=== PATIENT | male | born 1980 | race Caucasian/White ===

== ENCOUNTER 2018-02-07 07:42 | Emergency (ER) | payer MEDICARE ==
[~2018-02-07] VITALS: Ht 193 cm; Wt 99.8 kg
[2018-02-07 08:23] VITALS: BP 124/82
== END 2018-02-07 08:48 | disposition home or self-care (01) ==
LOC: ER 07:42
DX: F31.9 Bipolar disorder, unspecified (principal); Z76.0 Encounter for issue of repeat prescription; Z59.0 Homelessness; Z88.0 Allergy status to penicillin; Z88.2 Allergy status to sulfonamides